=== PATIENT | female | born 1960 | race African-American/Black ===

== ENCOUNTER 2017-06-25 14:09 | Emergency (ER) | payer MEDICARE, MEDICAID ==
[2017-06-25 15:15] LABS: ADD MAN DIFF? NO
[2017-06-25] MEDS: IPRATRPIUM/ALBUTEROL 0.5/2.5MG 3 ML NEBU. NEB (15:16)
[2017-06-25 15:17] LABS: BASO # 0.1 x10^3/uL (0.0-0.2); BASO % 1 % (0-3); EOS # 0.4 x10^3/uL (0.0-0.7); EOS % 7 % (0-3); HEMATOCRIT 39.1 % (36.0-47.0); HEMOGLOBIN 13.3 g/dL (12.0-15.5); LYMPH # 2.2 x10^3/uL (1.0-4.8); LYMPH % 36 % (24-48); MEAN CORPUSCULAR HEMOGLOBIN 29 pg (25-35); MEAN CORPUSCULAR HGB CONC 34 g/dL (31-37); MEAN CORPUSCULAR VOLUME 86 fL (79-100); MONO # 0.5 x10^3/uL (0.0-1.1); MONO % 9 % (0-9); NEUT # 2.8 x10^3uL (1.8-7.7); NEUT % 47 % (31-73); PLATELET COUNT 336 x10^3/uL (140-400); RED BLOOD COUNT 4.56 x10^6/uL (3.50-5.40); RED CELL DISTRIBUTION WIDTH 14.7 % (11.5-14.5)
[2017-06-25 15:33] LABS: ANION GAP 11 (6-14); BLOOD UREA NITROGEN 16 mg/dL (7-20); BUN/CREATININE RATIO 15 (6-20); CALCIUM 9.4 mg/dL (8.5-10.1); CARBON DIOXIDE 29 mmol/L (21-32); CHLORIDE 104 mmol/L (98-107); CREATININE 1.1 mg/dL (0.6-1.0); GFR 62.2; GLUCOSE 93 mg/dL (70-99); POTASSIUM 3.2 mmol/L (3.5-5.1); SODIUM 144 mmol/L (136-145)
[2017-06-25 15:38] LABS: ALBUMIN 3.6 g/dL (3.4-5.0); ALBUMIN/GLOBULIN RATIO 0.8 (1.0-1.7); ALK PHOS 102 U/L (46-116); ALT (SGPT) 22 U/L (14-59); AST (SGOT) 14 U/L (15-37); TOTAL BILIRUBIN 0.8 mg/dL (0.2-1.0); TOTAL PROTEIN 8.3 g/dL (6.4-8.2)
[2017-06-25 15:43] LABS: NT-PRO BNP 119 pg/mL (0-124)
[2017-06-25 15:44] LABS: TROPONINI < 0.017 ng/mL (0.000-0.055)
[2017-06-25 15:52] LABS: INFLUENZA A PATIENT NEGATIVE (NEGATIVE); INFLUENZA B PATIENT NEGATIVE (NEGATIVE); OBC FLU VALID
[2017-06-25] MEDS: POTASSIUM CHLORIDE 20 MEQ/15 ML ORAL LIQUID. PO (17:26)
== END 2017-06-25 17:24 | disposition home or self-care (01) ==
LOC: ER 14:09
DX: J45.909 Unspecified asthma, uncomplicated (principal); E78.00 Pure hypercholesterolemia, unspecified; E03.9 Hypothyroidism, unspecified; E87.6 Hypokalemia; I10 Essential (primary) hypertension; Z98.51 Tubal ligation status; Z90.710 Acquired absence of both cervix and uterus
CPT/HCPCS: 36415; 71046; 80053; 83880; 84484; 85025; 87804; 87804-59; 93005; 94640; 99285-25; J7620

== ENCOUNTER 2018-01-13 15:37 | Emergency (ER) | payer MEDICARE, MEDICAID ==
[~2018-01-13] VITALS: Ht 157.5 cm; Wt 84.8 kg
[~2018-01-13 15:37] MED LIST: ALBU2.5V14 IH; ASCO60LO PO; ATOR20TA58 PO; BUDE10.2 IH; CETI10TA16 PO; CHOL400C2 PO; DICL50TA4 PO; FLUT16SP2 NS; HYDR25TA9 PO; LEVO50TA5 PO; MOME13HF2 IH; MOME17SP NS; OMEG300C PO; POTA20PA30 PO; POTA20TA82 PO; TIZA4TAB PO; VITA100T5 PO
[2018-01-13 16:28] VITALS: BP 143/83
--- NOTE | 2018-01-13 17:04 | RAD ---
Right Lower Extremity Venous Doppler Ultrasound Indication: Right leg pain. Right knee arthroplasty in October. Comparison: None. Procedure: Color Doppler, spectral Doppler, and grayscale images with and without compression are obtained in the area of the common femoral vein, superficial femoral vein - femoral vein junction, main femoral vein (superficial femoral vein) and popliteal vein. Veins of the proximal calf are also imaged. Findings: There is normal duplex flow, color flow and compressibility of all visualized vein segments. There is no evidence of deep venous thrombosis. Popliteal region demonstrates complex lesion measuring 4.2 x 1.2 x 3.5 cm. This could represent complex Arambula's cyst or hematoma. Impression: 1. No evidence of deep venous thrombosis. 2. Complex right Arambula's cyst versus hematoma. Electronically signed by: Killian Melendez MD (01/13/2018 5:01 PM) [place] [id number]
--- NOTE | 2018-01-13 17:06 | RAD ---
Right Upper Extremity Venous Doppler Ultrasound Indication: Right arm pain. Comparison: None. Procedure: Color Doppler, spectral Doppler, and grayscale imaging was performed of the upper extremity. Imaged veins were jugular, subclavian, axillary, brachial, radial, ulnar, basilic, and cephalic veins. Findings: The veins are patent and demonstrate normal Doppler flow dynamics. There is no evidence of upper extremity venous thrombosis. Impression: No evidence of right upper extremity deep venous thrombosis. Electronically signed by: Killian Melendez MD (01/13/2018 5:02 PM) [place] [id number]
--- NOTE | 2018-01-13 17:17 | PHYS DOC ---
Past Medical History Past Medical History: Arthritis, Asthma, High Cholesterol, Hypertension, Hyperthyroid Past Surgical History: Hysterectomy, Knee Replacement, Tubal ligation, Other Additional Past Surgical Histo: CARPAL TUNNEL, RIGHT TOE, RIGHT ARM Alcohol Use: None Drug Use: None Adult General Chief Complaint Chief Complaint: LOWER EXT PAIN HPI HPI Patient is a 57 year old female who presents with pain to her right knee and right arm. The patient had a knee replacement in October and her physical therapist became concerned with her pain today. They were worried that she might have a deep vein thrombosis and encouraged her to go to the emergency department to be evaluated. Review of Systems Review of Systems Constitutional: Denies fever or chills [] Respiratory: Denies cough or shortness of breath [] Cardiovascular: No additional information not addressed in HPI [] GI: Denies abdominal pain, nausea, vomiting, bloody stools or diarrhea [] : Denies dysuria or hematuria [] Musculoskeletal: See history of present illness Integument: Denies rash or skin lesions [] Neurologic: Denies headache, focal weakness or sensory changes [] Endocrine: Denies polyuria or polydipsia [] All other systems were reviewed and found to be within normal limits, except as documented in this note. Allergies Allergies Allergies Coded Allergies Type Severity Reaction Last Updated Verified fluticasone Allergy Intermediate 04/18/14 Yes hydrocodone Allergy Intermediate hives 04/18/14 Yes salmeterol Allergy Intermediate ALBUTEROL OK 06/25/17 Yes Physical Exam Physical Exam Constitutional: Well developed, well nourished, no acute distress, non-toxic appearance. [] HENT: Normocephalic, atraumatic, bilateral external ears normal, oropharynx moist, no oral exudates, nose normal. [] Eyes: PERRLA, EOMI, conjunctiva normal, no discharge. [] Neck: Normal range of motion, no tenderness, supple, no stridor. [] Cardiovascular:Heart rate regular rhythm, no murmur [] Lungs & Thorax: Bilateral breath sounds clear to auscultation [] Abdomen: Bowel sounds normal, soft, no tenderness, no masses, no pulsatile masses. [] Skin: Warm, dry, no erythema, no rash. [] Back: No tenderness, no CVA tenderness. [] Extremities: tenderness to right knee with palpation, no gross deformities noted, no cyanosis, no clubbing, ROM intact, mild edema, no ecchymosis, pulses and sensation are intact distal to affected area, right upper arm has soreness but seems to be musculoskeletal. [] Neurologic: Alert and oriented X 3, normal motor function, normal sensory function, no focal deficits noted. [] Psychologic: Affect normal, judgement normal, mood normal. [] Current Patient Data Vital Signs Vital Signs Date Time Temp Pulse Resp B/P (MAP) Pulse Ox O2 Delivery O2 Flow Rate FiO2 01/13/18 16:28 98.1 99 16 143/83 (103) 97 Room Air 98.1 EKG EKG [] Radiology/Procedures Radiology/Procedures []Signed PATIENT: IRENE MONTE ACCOUNT: [id number] : 1960 LOCATION: ER AGE: 57 SEX: F EXAM STATUS: REG ER ORD. PHYSICIAN: KRYSTIAN MARCOS APRN REASON: r/o DVT post knee replacement PROCEDURE: VENOUS UPPER EXTREMITY RIGHT Right Upper Extremity Venous Doppler Ultrasound Indication: Right arm pain. Comparison: None. Procedure: Color Doppler, spectral Doppler, and grayscale imaging was performed of the upper extremity. Imaged veins were jugular, subclavian, axillary, brachial, radial, ulnar, basilic, and cephalic veins. Findings: The veins are patent and demonstrate normal Doppler flow dynamics. There is no evidence of upper extremity venous thrombosis. Impression: No evidence of right upper extremity deep venous thrombosis. Electronically signed by: Killian Marin MD (01/13/2018 5:02 PM) [place] [id number] DICTATED and SIGNED BY: KILLIAN MARIN MD DATE: 01/13/181700 PATIENT: IRENE MONTE ACCOUNT: [id number] : 1960 LOCATION: ER AGE: 57 SEX: F EXAM STATUS: REG ER ORD. PHYSICIAN: KRYSTIAN MARCOS APRN REASON: r/o DVT post knee replacement PROCEDURE: VENOUS LOWER EXTREMITY RIGHT Right Lower Extremity Venous Doppler Ultrasound Indication: Right leg pain. Right knee arthroplasty in October. Comparison: None. Procedure: Color Doppler, spectral Doppler, and grayscale images with and without compression are obtained in the area of the common femoral vein, superficial femoral vein - femoral vein junction, main femoral vein (superficial femoral vein) and popliteal vein. Veins of the proximal calf are also imaged. Findings: There is normal duplex flow, color flow and compressibility of all visualized vein segments. There is no evidence of deep venous thrombosis. Popliteal region demonstrates complex lesion measuring 4.2 x 1.2 x 3.5 cm. This could represent complex Arambula's cyst or hematoma. Impression: 1. No evidence of deep venous thrombosis. 2. Complex right Arambula's cyst versus hematoma. Electronically signed by: Killian Marin MD (01/13/2018 5:01 PM) [facility] DICTATED and SIGNED BY: KILLIAN MARIN MD DATE: 01/13/18 1700 Course & Med Decision Making Course & Med Decision Making Pertinent Labs and Imaging studies reviewed. (See chart for details) []The patient's ultrasound is negative for DVT. The patient does have a Arambula cyst versus hematoma on the right knee. She is going to follow up with her orthopedic surgeon. Dragon Disclaimer Dragon Disclaimer This electronic medical record was generated, in whole or in part, using a voice recognition dictation system. Departure Departure Impression: Primary Impression: Knee pain, acute Additional Impression: Arm pain Disposition: HOME, SELF-CARE Condition: STABLE Referrals: АННА ESPINOZA MD (PCP) Patient Instructions: Knee Pain Additional Instructions: There is no evidence of DVT. There is a possible hematoma or Arambula cyst found on ultrasound. Please follow-up with your surgeon for recheck. Problem Qualifiers KRYSTIAN MARCOS CHIEF DOG LICENSE INSPECTOR Jan 13, 2018 17:17
== END 2018-01-13 17:20 | disposition home or self-care (01) ==
LOC: ER 15:37
DX: M25.561 Pain in right knee (principal); M79.601 Pain in right arm; R60.0 Localized edema; M19.90 Unspecified osteoarthritis, unspecified site; J45.909 Unspecified asthma, uncomplicated; E78.00 Pure hypercholesterolemia, unspecified; I10 Essential (primary) hypertension; E03.9 Hypothyroidism, unspecified; Z96.651 Presence of right artificial knee joint; Z88.5 Allergy status to narcotic agent; Z88.8 Allergy status to other drugs, medicaments and biological substances
CPT/HCPCS: 93971; 99284

== ENCOUNTER 2019-10-23 14:14 | Emergency (ER) | payer MEDICARE, MEDICAID ==
[~2019-10-23] VITALS: Ht 157.5 cm; Wt 98.0 kg
[~2019-10-23 14:14] MED LIST changes: +HYDR-2145 PO; -HYDR25TA9 PO; +POTA20TA4 PO; -POTA20TA82 PO; -TIZA4TAB PO; +TIZA4TAB2 PO
[2019-10-23 15:15] VITALS: BP 151/109
[2019-10-23] MEDS ORDERED: traMADol 50 MG TABLET PO ONE (15:45)
[2019-10-23] MEDS ORDERED: TRAM1TAB56 PO (15:51)
[2019-10-23] MEDS ORDERED: SILV20CR14 TP (15:51)
--- NOTE | 2019-10-23 15:52 | PHYS DOC ---
Past Medical History Past Medical History: Arthritis, Asthma, High Cholesterol, Hypertension, Hyperthyroid Past Surgical History: Hysterectomy, Knee Replacement, Tubal ligation, Other Additional Past Surgical Histo: CARPAL TUNNEL, RIGHT TOE, RIGHT ARM Smoking Status: Never Smoker Alcohol Use: None Drug Use: None General Adult EDM: Chief Complaint: BURN/SMOKE INHALATION HPI: HPI: Patient is a 59 year old female who presented with a burn that she sustained yesterday to her left wrist. Patient states she burned on oven. Patient describes moderate pain is worse with palpation. Patient denies any fever. There is some leaking of the fluid from the blister. Pain radiates up her arm. Review of Systems: Review of Systems: Constitutional: Denies fever or chills. [] Eyes: Denies change in visual acuity. [] HENT: Denies nasal congestion or sore throat. [] Respiratory: Denies cough or shortness of breath. [] Cardiovascular: Denies chest pain or edema. [] GI: Denies abdominal pain, nausea, vomiting, bloody stools or diarrhea. [] : Denies dysuria. [] Musculoskeletal: Denies back pain or joint pain. [] Integument: Complains of burn to left wrist Neurologic: Denies headache, focal weakness or sensory changes. [] Endocrine: Denies polyuria or polydipsia. [] Lymphatic: Denies swollen glands. [] Psychiatric: Denies depression or anxiety. [] Heart Score: Risk Factors: Risk Factors: DM, Current or recent (<one month) smoker, HTN, HLP, family history of CAD, obesity. Risk Scores: Score 0 - 3: 2.5% MACE over next 6 weeks - Discharge Home Score 4 - 6: 20.3% MACE over next 6 weeks - Admit for Clinical Observation Score 7 - 10: 72.7% MACE over next 6 weeks - Early Invasive Strategies Current Medications: Current Medications Medications (Trade) Dose Ordered Sig/Angeles Start Time Stop Time Status Last Admin Dose Admin Silver Sulfadiazine (Silvadene) 1 quique 1X ONCE 10/23/19 16:00 10/23/19 16:01 10/23/19 15:45 1 QUIQUE Tramadol HCl (Ultram) 50 mg 1X ONCE 10/23/19 15:45 10/23/19 15:46 DC 10/23/19 15:45 50 MG Allergies: Allergies: Allergies Coded Allergies Type Severity Reaction Last Updated Verified fluticasone Allergy Intermediate 04/18/14 Yes hydrocodone Allergy Intermediate hives 04/18/14 Yes salmeterol Allergy Intermediate ALBUTEROL OK 06/25/17 Yes Physical Exam: PE: Constitutional: Well developed, well nourished, no acute distress, non-toxic appearance. HENT: No trismus, external ears normal Eyes: Conjunctiva clear, EOMI Neck: Normal range of motion, no tenderness, supple, no stridor. Cardiovascular: Regular rate/rhythm, peripheral pulse intact, [employer]IDENT[employer]ST[employer]ER intact Lungs & Thorax: No respiratory distress Abdomen: No distension Skin: Diffuse: Intact, no rash Back: Full ROM Extremities: Noncircumferential less than 1% total body surface area burn to the left wrist on the ulnar side and the volar side, neurovascular intact distally. There is a small hole with some serous drainage from the blister. The burn is second-degree Neurologic: Alert and oriented X 3, normal motor function, , no focal deficits noted. Psychologic: Affect normal, judgement normal, mood normal. Current Patient Data: Vital Signs: Vital Signs Date Time Temp Pulse Resp B/P (MAP) Pulse Ox O2 Delivery O2 Flow Rate FiO2 10/23/19 15:15 98.7 88 14 151/109 (123) 97 Room Air 98.7 EKG: EKG: [] Radiology/Procedures: Radiology/Procedures: [] Course & Med Decision Making: Course & Med Decision Making Pertinent Labs and Imaging studies reviewed. (See chart for details) [] The burn was debrided by me. The patient then cleaned with soap and water and nursing applied Silvadene ointment and a bandage. Dragon Disclaimer: Dragon Disclaimer: This electronic medical record was generated, in whole or in part, using a voice recognition dictation system. Departure Departure Impression: Primary Impression: Burn of left wrist Disposition: 01 HOME, SELF-CARE Condition: STABLE Referrals: АННА ESPINOZA MD (PCP) 2-3 DAYS Patient Instructions: Burn Care Additional Instructions: EMERGENCY DEPARTMENT GENERAL DISCHARGE INSTRUCTIONS THANK YOU for coming to [facility] Emergency Department (ED) today and trusting us with your care. We trust that you had a positive experience in our Emergency Department. If you wish to speak to the department Management you can contact the architecture department chair at . YOUR FOLLOW UP INSTRUCTIONS ARE FOLLOWS: Do you have a private doctor? If you do not have a private doctor, please ask for a resource list of physicians or clinics that may be able to assist you with follow up care. The Emergency Physician has interpreted your x-rays. The X-ray specialist will also review them. If there is a change in the findings you will be notified in 48 hours when at all possible. A lab test or lab culture may have been done, your results will be reviewed and you will be notified if you need a change in treatment. ADDITIONAL INSTRUCTIONS AND INFORMATION Your care today has been supervised by a physician who is specially trained in emergency care. Many problems require more than one evaluation for a complete diagnosis and treatment. We recommend that you schedule your follow up appointment as recommended to ensure complete treatment of your illness or injury. If you are unable to obtain follow up care and continue to have a problem, or if your condition worsens we recommend that you return to the ED. We are not able to safely determine your condition over the phone nor are we able to give sound medical advice over the phone. For these safety reasons, if you call for medical advice we will ask you to come to the ED for further evaluation If you have any questions regarding these discharge instructions please call the ED at . SAFETY INFORMATION In the interest of safety, wellness, and injury prevention; we encourage you to wear your seatbelt, if you smoke; quit smoking, and we encourage your family to use protective helmet for bicycling and other sporting events that present an increased risk for head injury. IF YOUR SYMPTOMS WORSEN OR NEW SYMPTOMS DEVELOP, OR YOU HAVE CONCERNS ABOUT YOUR CONDITION; OR IF YOUR CONDITION WORSENS WHILE YOU ARE WAITING FOR YOUR FOLLOW UP APPOINTMENT; EITHER CONTACT YOUR PRIMARY CARE DOCTOR, THE PHYSICIAN WHOSE NAME AND NUMBER YOU WERE GIVEN, OR RETURN TO THE ED IMMEDIATELY. Clean burn with soap and water twice a day with movement pain. Then apply new Silvadene and wrapped the wound twice a day. Scripts Tramadol Hcl/Acetaminophen (ULTRACET TABLET) 1 Each Tablet 1 TAB PO PRN Q6HRS PRN for pain MDD 4 Tablet(s) for 7 Days, #12 TAB 0 Refills Prov: DEJUAN JERONIMO MD 10/23/19 Silver Sulfadiazine (SILVADENE) 20 Gm Cream..g. 1 QUIQUE TP BID for 15 Days, #100 GM 0 Refills apply to affected area(s) Prov: DEJUAN JERONIMO MD 10/23/19 Justicifation of Admission Dx: Justifications for Admission: Justification of Admission Dx: N/A DEJUAN JERONIMO MD Oct 23, 2019 15:52
[2019-10-23] MEDS ORDERED: silver sulfADIAZINE 1% CREAM 25GM TUBE. TP ONE (16:00)
== END 2019-10-23 16:07 | disposition home or self-care (01) ==
LOC: ER 14:14
DX: T23.272A Burn of second degree of left wrist, initial encounter (principal); J45.909 Unspecified asthma, uncomplicated; E78.00 Pure hypercholesterolemia, unspecified; I10 Essential (primary) hypertension; Z88.5 Allergy status to narcotic agent; Z88.8 Allergy status to other drugs, medicaments and biological substances; W29.2XXA Contact with other powered household machinery, initial encounter; Y93.G9 Activity, other involving cooking and grilling; Y92.89 Other specified places as the place of occurrence of the external cause; Y99.8 Other external cause status
CPT/HCPCS: 16020; 99283

== ENCOUNTER 2020-02-10 15:29 | Emergency (ER) | payer MEDICARE, MEDICAID ==
[~2020-02-10] VITALS: Ht 157.5 cm; Wt 100.0 kg
[~2020-02-10 15:29] MED LIST changes: +SILV20CR14 TP; +TRAM1TAB56 PO
[2020-02-10 15:50] VITALS: BP 153/85
--- NOTE | 2020-02-10 16:33 | PHYS DOC ---
Past Medical History Past Medical History: Arthritis, Asthma, High Cholesterol, Hypertension, Hyperthyroid Past Surgical History: Hysterectomy, Knee Replacement, Tubal ligation, Other Additional Past Surgical Histo: CARPAL TUNNEL, RIGHT TOE, RIGHT ARM Smoking Status: Never Smoker Alcohol Use: None Drug Use: None General Adult EDM: Chief Complaint: left leg swelling HPI: HPI: 60-year-old female presented emerge department today with left lower leg pain and swelling. Her pain and swelling been present for about 7 days. Her pain is a throbbing aching pain in the posterior portion of the leg. She denies any recent traumatic injuries or falls. She also has had some neck pain which is sharp shooting over the past few days. She denies a history of DVTs or PEs. Review of systems is negative for chest pain shortness of breath abdominal pain vomiting fevers chills. All other review of systems negative ED course: 60-year-old female presenting with left lower extremity swelling and pain. Ultrasound of the leg is unremarkable for DVT. There is a Arambula's cyst present. We will refer her to her PCP for treatment. She is to return for any worsening symptoms or any other concerns. Follow-up with PCP in 1 to 2 days. Heart Score: Risk Factors: Risk Factors: DM, Current or recent (<one month) smoker, HTN, HLP, family history of CAD, obesity. Risk Scores: Score 0 - 3: 2.5% MACE over next 6 weeks - Discharge Home Score 4 - 6: 20.3% MACE over next 6 weeks - Admit for Clinical Observation Score 7 - 10: 72.7% MACE over next 6 weeks - Early Invasive Strategies Allergies: Allergies: Allergies Coded Allergies Type Severity Reaction Last Updated Verified fluticasone Allergy Intermediate 04/18/14 Yes hydrocodone Allergy Intermediate hives 04/18/14 Yes salmeterol Allergy Intermediate ALBUTEROL OK 06/25/17 Yes Physical Exam: PE: Constitutional: Well developed, well nourished, no acute distress, non-toxic appearance. [] HENT: Normocephalic, atraumatic, bilateral external ears normal, oropharynx moist, no oral exudates, nose normal. [] Eyes: PERRLA, EOMI, conjunctiva normal, no discharge. [] Neck: Normal range of motion, no tenderness, supple, no stridor. [] Cardiovascular:Heart rate regular rhythm, no murmur [] Lungs & Thorax: Bilateral breath sounds clear to auscultation [] Abdomen: Bowel sounds normal, soft, no tenderness, no masses, no pulsatile masses. [] Skin: Warm, dry, no erythema, no rash. [] Back: No tenderness, no CVA tenderness. [] Extremities: The patient's extremities have swelling on the left with tenderness along the calf and behind the knee. There is no erythema. Not warm to touch. Palpable pulses on the dorsalis pedis and posterior tibialis pulses. 2-second cap refill with normal motor and sensory function of both feet. The right calf is not swollen. The left calf is mildly swollen no abrasions lacerations or ecchymosis to the legs. Nontender ankle with normal range of motion. Nontender knees bilaterally. No pain with passive range of motion of the hips bilaterally. Neurologic: Alert and oriented X 3, normal motor function, normal sensory function, no focal deficits noted. [] Psychologic: Affect normal, judgement normal, mood normal. [] Current Patient Data: Vital Signs: Vital Signs Date Time Temp Pulse Resp B/P (MAP) Pulse Ox O2 Delivery O2 Flow Rate FiO2 02/10/20 15:50 98.5 75 20 153/85 (107) 98.5 EKG: EKG: [] Radiology/Procedures: Radiology/Procedures: [] Course & Med Decision Making: Course & Med Decision Making Pertinent Labs and Imaging studies reviewed. (See chart for details) [] Dragon Disclaimer: Dragon Disclaimer: This electronic medical record was generated, in whole or in part, using a voice recognition dictation system. Departure Departure Impression: Primary Impression: Left leg pain Additional Impression: Bakers cyst Disposition: 01 DC HOME SELF CARE/HOMELESS Condition: STABLE Referrals: АННА ESPINOZA MD (PCP) Patient Instructions: Medical Screening Exam Additional Instructions: Follow-up with your primary physician in 1 to 2 days. Return to the emergency department if you have any new or concerning findings. YUSRA KELLEY MD Feb 10, 2020 16:33
--- NOTE | 2020-02-10 17:05 | RAD ---
Left Lower Extremity Venous Doppler: Reason for examination: Left lower extremity pain and swelling. The left lower extremity venous system was evaluated from the common femoral and greater saphenous ve ins distally to the calf veins with grayscale imaging, color-flow imaging and spectral analysis. There is normal blood flow without deep venous thrombosis. There is normal response of the venous sys tems to compression and augmentation. There is however a Arambula's cyst in the popliteal fossa measurin g 6.8 x 4.1 x 2.0 cm in greatest dimensions. Impression: No deep venous thrombosis in the left lower extremity venous system. 6.8 x 4.1 x 2 cm Arambula's cyst in the popliteal fossa. Electronically signed by: Shelly Ansari MD (02/10/2020 5:02 PM) [place]
== END 2020-02-10 18:32 | disposition home or self-care (01) ==
LOC: ER 15:29
DX: M71.22 Synovial cyst of popliteal space [Baker], left knee (principal); M79.662 Pain in left lower leg; R60.0 Localized edema; M54.2 Cervicalgia; M19.90 Unspecified osteoarthritis, unspecified site; J45.909 Unspecified asthma, uncomplicated; E78.00 Pure hypercholesterolemia, unspecified; I10 Essential (primary) hypertension; E05.90 Thyrotoxicosis, unspecified without thyrotoxic crisis or storm; Z90.710 Acquired absence of both cervix and uterus; Z98.51 Tubal ligation status; Z98.890 Other specified postprocedural states; Z88.5 Allergy status to narcotic agent; Z88.8 Allergy status to other drugs, medicaments and biological substances
CPT/HCPCS: 93971; 99284